=== PATIENT | female | born 2000 | race Caucasian/White ===

== ENCOUNTER 2020-07-06 09:33 | Emergency (ER) | payer OTHER, SELFPAY ==
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
[2020-07-06 09:36] VITALS: BP 139/96; PULSE 100; RESP 16; TEMP 36.6; O2SAT 100
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
[2020-07-06 12:53] VITALS: BP 121/76; PULSE 89; RESP 16; O2SAT 100
== END 2020-07-06 12:55 | disposition home or self-care (01) ==
PROVIDERS: Emergency Provider Nurse Practitioner; PCP Family Medicine
DX: S13.4XXA Sprain of ligaments of cervical spine, initial encounter (principal); S29.012A Strain of muscle and tendon of back wall of thorax, initial encounter; S46.911A Strain of unspecified muscle, fascia and tendon at shoulder and upper arm level, right arm, initial encounter; V49.40XA Driver injured in collision with unspecified motor vehicles in traffic accident, initial encounter
CPT/HCPCS: 72125; 73030; 81025; 99284